=== PATIENT | male | born 1945 | race Caucasian/White ===

== ENCOUNTER 2018-12-04 22:03 | Emergency (ER) | payer OTHER ==
[~2018-12-04] VITALS: Ht 195.6 cm; Wt 129.3 kg
[~2018-12-04 22:03] MED LIST: ALLOPURINOL 30300 M1 PO; ALTACE5 M1 PO; ASPIRIN325; CELEXA 20 MG TA20 M1 PO; COUMADIN 5 MG TA5 M1 PO; MICARDIS40 MG PO; NIASPAN 500 MG500 M1 PO; SLOW-MAG64 MG PO; VITAMIN D400 UNI1 PO; VYTORIN 10-401 EACH PO
[2018-12-04 23:57] LABS: ABSOLUTE NEUTROPHILS 10.6 thou/uL (1.4-8.2); BASOPHILS 0.5 % (0.0-2.0); HEMATOCRIT 41.2 % (42.0-52.0); LYMPHOCYTES 8.9 % (24.0-44.0); MCH 32.4 pg (26.0-34.0); MCHC 33.9 g/dL (28.0-37.0); MCV 95.7 fL (80.0-100.0); MONOCYTES 7.5 % (1.0-8.0); PLATELET COUNT 230 thou/uL (150-400); POLYS 83.1 % (36.0-66.0); RBC 4.31 mil/uL (4.50-6.00); RDW 13.7 % (10.5-14.5); WBC 12.7 thou/uL (4.0-11.0)
[2018-12-05 00:06] LABS: CALCIUM 9.2 mg/dL (8.5-10.1); CREATININE 1.3 mg/dL (0.7-1.3); POTASSIUM 3.9 mmol/L (3.5-5.1)
[2018-12-05 01:59] LABS: APTT 41.9 Seconds (24.5-32.8); PROTIME 58.8 Seconds (9.3-11.4)
[2018-12-05 02:05] LABS: INR 5.7
[2018-12-05] MEDS ORDERED: SIMVASTATIN40 MG PO (02:10)
[2018-12-05] MEDS ORDERED: ALTACE10 MG PO (02:10)
[2018-12-05 02:31] VITALS: BP 149/89
== END 2018-12-05 02:31 | disposition home or self-care (01) ==
LOC: ER 22:03
PROVIDERS: Emergency Medicine
DX: S60.222A Contusion of left hand, initial encounter (principal); R79.1 Abnormal coagulation profile; E78.00 Pure hypercholesterolemia, unspecified; G47.30 Sleep apnea, unspecified; Z86.718 Personal history of other venous thrombosis and embolism; Z87.01 Personal history of pneumonia (recurrent); W22.8XXA Striking against or struck by other objects, initial encounter; Y93.89 Activity, other specified; Y92.89 Other specified places as the place of occurrence of the external cause; Y99.8 Other external cause status

== ENCOUNTER → 2018-12-07 | Outpatient (CLI) | payer OTHER ==
[~2018-12-07] MED LIST changes: +ALTACE10 MG PO; +SIMVASTATIN40 MG PO
== END ==
LOC: ULTRA 07:59
DX: N28.1 Cyst of kidney, acquired (principal)

== ENCOUNTER → 2019-04-17 | Outpatient (CLI) | payer OTHER ==
--- NOTE | 2019-04-17 15:44 | 2DMMODE ---
[facility] [place] [address] 2 D/M-MODE ECHOCARDIOGRAM Name: YURICRISTIANE J Room #: REG [facility]#: [id number] Admission: 04/17/19 Attend Phys: Samm Tim MD Discharge: Date of : 45 Report #: [id number] THIS REPORT FOR: //name// APPROVED REPORT Study performed: 04/17/2019 13:35:30 EXAM: Comprehensive 2D, Doppler, and color-flow Echocardiogram Patient Location: Echo lab Status: routine BSA: 2.60 HR: 67 bpm BP: 159/97 mmHg Rhythm: NSR Other Information Study Quality: Adequate Indications Dyspnea on exertion 2D Dimensions RVDd: 45.91 mm IVSd: 15.21 (7-11mm) LVOT Diam: 26.93 (18-24mm) LVDd: 48.85 mm PWd: 14.48 (7-11mm) Ascending Ao: 41.19 (22-36mm) LVDs: 34.13 (25-40mm) Aortic Root: 41.56 mm IVC: 26.00 mm Volumes Left Atrial Volume (Systole) Single Plane 4CH: 73.74 mL Single Plane 2CH: 94.52 mL LA ESV Index: 33.00 mL/m2 Aortic Valve AoV Peak Darnell.: 1.04 m/s AO Peak Gr.: 4.36 mmHg LVOT Max P.50 mmHg LVOT Max V: 0.79 m/s LALA Vmax: 4.31 cm2 Mitral Valve E/A Ratio: 0.8 MV Decel. Time: 301.04 ms MV E Max Darnell.: 0.43 m/s [facility] [address] [place] [address] 2 D/M-MODE ECHOCARDIOGRAM Name: CRISTIANE WELCH Sid Room #: REG [facility]#: [id number] Admission: 04/17/19 Attend Phys: Samm Tim MD Discharge: Date of : 45 Report #: [id number] MV A Darnell.: 0.55 m/s MV PHT: 87.30 ms IVRT: 156.86 ms Pulmonary Valve PV Peak Darnell.: 1.21 m/s PV Peak Gr.: 5.90 mmHg Pulmonary Vein P Vein S: 0.38 m/s P Vein A: 0.21 m/s P Vein D: 0.42 m/s P Vein A Dur.: 110.7 msec P Vein S/D Ratio: 0.90 Tricuspid Valve RAP Estimate: 10.00 mmHg Left Ventricle The left ventricle is normal size. Regional wall motion is not well visualized but grossly normal. Mild to moderate concentric left ventricular hypertrophy. The left ventricular systolic function is normal. The left ventricular ejection fraction is within the normal range. LVEF is 60-65%. Mild diastolic dysfunction Right Ventricle The right ventricle is normal size. The right ventricular systolic function is normal. Atria Left atrium is at the upper limits of normal. Right atrium is mildly dilated. Aortic Valve The aortic valve is mildly calcified, trileaflet Trace to mild aortic regurgitation. There is no aortic valvular stenosis. Mitral Valve The mitral valve is normal in structure. Trace to mild mitral regurgitation. No evidence of mitral valve stenosis. Tricuspid Valve The tricuspid valve is normal in structure. There is no tricuspid valve regurgitation noted. Unable to assess PA pressure. Pulmonic Valve The pulmonary valve is normal in structure. Trace pulmonic regurgitation. [facility] [place] [address] 2 D/M-MODE ECHOCARDIOGRAM Name: CRISTIANE WELCH Room #: REG [facility]#: [id number] Admission: 04/17/19 Attend Phys: Samm Tim MD Discharge: Date of : 45 Report #: [id number] Great Vessels Aortic root is mildly dilated at 4.2 cm. The ascending aorta is mildly dilated (4.1 cm). IVC is dilated and collapses >50% with inspiration. Pericardium There is no pericardial effusion. <Conclusion> The left ventricular systolic function is normal. Regional wall motion is not well visualized but grossly normal. LVEF is 60-65%. Mild diastolic dysfunction The aortic valve is mildly calcified, trileaflet. Trace to mild aortic regurgitation. The mitral valve is normal in structure. Trace to mild mitral regurgitation. Unable to assess pulmonary artery pressure. The ascending aorta is mildly dilated (4.1 cm). There is no pericardial effusion. <ELECTRONICALLY SIGNED> By: Jose Manuel Velasco MD, FACC 04/17/19 1543 1543 1543 Jose Manuel Velasco MD, FACC /INF
== END ==
LOC: NUC 11:45
DX: I08.0 Rheumatic disorders of both mitral and aortic valves (principal)

== ENCOUNTER → 2020-01-01 | Outpatient (CLI) | payer OTHER | LOC: ULTRA 10:18 | PROVIDERS: ATTEND Internal Medicine | DX: K76.0 Fatty (change of) liver, not elsewhere classified (principal); N28.1 Cyst of kidney, acquired ==

== ENCOUNTER → 2020-03-27 | Outpatient (CLI) | payer OTHER | LOC: RAD 11:44 | PROVIDERS: ATTEND Internal Medicine | DX: M47.816 Spondylosis without myelopathy or radiculopathy, lumbar region (principal); M48.07 Spinal stenosis, lumbosacral region ==

== ENCOUNTER 2020-04-17 08:05 | Emergency (ER) | payer OTHER ==
[~2020-04-17] VITALS: Ht 195.6 cm; Wt 129.3 kg
[~2020-04-17 08:05] MED LIST changes: -CELEXA 20 MG TA20 MG PO; -COQ-1030 MG PO; -FISH OIL 1,0001 EAC9 PO; -MAGNESIUM250 M1 PO; -NASCOBAL1 EACH PO; -PROBIOTIC & AC1 EACH PO
[2020-04-17] MEDS ORDERED: CELEXA 20 MG TA20 MG PO (08:21)
[2020-04-17] MEDS ORDERED: FISH OIL 1,0001 EAC9 PO (08:22)
[2020-04-17] MEDS ORDERED: COQ-1030 MG PO (08:22)
[2020-04-17] MEDS ORDERED: MAGNESIUM250 M1 PO (08:22)
[2020-04-17] MEDS ORDERED: PROBIOTIC & AC1 EACH PO (08:23)
[2020-04-17] MEDS ORDERED: NASCOBAL1 EACH PO (08:23)
[2020-04-17 08:27] LABS: HEMATOCRIT 44.9 % (42.0-52.0); HEMOGLOBIN 15.4 gm/dL (14.0-18.0); MCH 33.9 pg (26.0-34.0); MCHC 34.3 g/dL (28.0-37.0); RBC 4.54 mil/uL (4.50-6.00); RDW 14.3 % (10.5-14.5); WBC 4.2 thou/uL (4.0-11.0)
[2020-04-17 08:37] LABS: ANION GAP 10 mmol/L (7-16); BUN 16 mg/dL (7-18); CALCIUM 9.4 mg/dL (8.5-10.1); CHLORIDE 104 mmol/L (98-107); CO2 26 mmol/L (21-32); CREATININE 1.3 mg/dL (0.7-1.3); GLUCOSE 104 mg/dL (74-106); POTASSIUM 3.9 mmol/L (3.5-5.1); SODIUM 140 mmol/L (136-145)
[2020-04-17 08:46] LABS: TROPONIN-I <0.06 ng/mL (<0.06)
[2020-04-17 08:57] LABS: APTT 37.7 Seconds (24.5-32.8); PROTIME 20.2 Seconds (9.3-11.4)
[2020-04-17 09:24] VITALS: BP 123/74
--- NOTE | 2020-04-17 09:24 | EKG ---
[facility] [place] [place] [address] ELECTROCARDIOGRAM REPORT Name: WELCHCRISTIANE Room #: REG [facility].#: [id number] Admission: 04/17/20 Attend Phys: Discharge: Date of : 45 Report #: [id number] THIS REPORT FOR: cc: Price Harris MD, Christopher B. MD Santiago, Patrick MD [facility] ~ THIS REPORT FOR: //name// [facility] ED Test Date: 2020-04-17 Test Time: 08:11:05 Pat Name: CRISTIANE WELCH Department: Room: Gender: Record Center Specialist: KASEY DELGADILLO : 1945 Requested By: Sony Arrieta Order Number: [id number] MD: Uri Avila Measurements Intervals [place] Rate: 80 P: -54 UT: 210 QRS: -9 QRSD: 104 T: 18 QT: 395 QTc: 456 Interpretive Statements NSR Baseline wander in lead(s) V3 Compared to ECG 12/20/2009 17:07:06 No significant changes Electronically Signed On 04-17-2020 9:23:55 CDT by Uri Avila [email or web address] <ELECTRONICALLY SIGNED> By: Uri Avila MD, FACC 04/17/20 0923 0 0 Uri Avila MD, [facility] /EPI
== END 2020-04-17 09:24 | disposition home or self-care (01) ==
LOC: ER 08:05
PROVIDERS: Emergency Medicine
DX: R07.89 Other chest pain (principal); E78.5 Hyperlipidemia, unspecified; F17.210 Nicotine dependence, cigarettes, uncomplicated; Z79.899 Other long term (current) drug therapy; Z79.82 Long term (current) use of aspirin; Z79.01 Long term (current) use of anticoagulants

== ENCOUNTER → 2020-04-17 | Outpatient (CLI) | payer OTHER ==
[~2020-04-17] MED LIST changes: +CELEXA 20 MG TA20 MG PO; +COQ-1030 MG PO; +FISH OIL 1,0001 EAC9 PO; +MAGNESIUM250 M1 PO; +NASCOBAL1 EACH PO; +PROBIOTIC & AC1 EACH PO
== END ==
LOC: MRI 15:25
PROVIDERS: ATTEND Internal Medicine
DX: M51.37 Other intervertebral disc degeneration, lumbosacral region (principal); M48.07 Spinal stenosis, lumbosacral region; M25.78 Osteophyte, vertebrae; M47.816 Spondylosis without myelopathy or radiculopathy, lumbar region

== ENCOUNTER → 2020-04-19 | Outpatient (CLI) | payer OTHER ==
[~2020-04-19] MED LIST changes: +CELEXA 20 MG TA20 MG PO; +COQ-1030 MG PO; +FISH OIL 1,0001 EAC9 PO; +MAGNESIUM250 M1 PO; +NASCOBAL1 EACH PO; +PROBIOTIC & AC1 EACH PO
== END ==
LOC: SJCVC 10:22 → SJCVCIMAG 10:22
PROVIDERS: ATTEND Internal Medicine Cardiovascular Disease
DX: I65.23 Occlusion and stenosis of bilateral carotid arteries (principal); I08.2 Rheumatic disorders of both aortic and tricuspid valves; I11.9 Hypertensive heart disease without heart failure; D68.59 Other primary thrombophilia; E78.00 Pure hypercholesterolemia, unspecified; I72.9 Aneurysm of unspecified site; F17.200 Nicotine dependence, unspecified, uncomplicated; Z79.899 Other long term (current) drug therapy; Z86.718 Personal history of other venous thrombosis and embolism

== ENCOUNTER → 2020-04-24 | Outpatient (CLI) | payer OTHER | LOC: CAT 11:11 | PROVIDERS: ATTEND Internal Medicine | DX: N28.1 Cyst of kidney, acquired (principal); N20.0 Calculus of kidney ==

== ENCOUNTER → 2020-04-24 | Outpatient (CLI) | payer OTHER ==
[~2020-04-24] MED LIST changes: +XARELTO20 MG PO
== END ==
LOC: SJCVCIMAG 07:30
PROVIDERS: ATTEND Internal Medicine Cardiovascular Disease
DX: I45.10 Unspecified right bundle-branch block (principal); R00.0 Tachycardia, unspecified; R93.1 Abnormal findings on diagnostic imaging of heart and coronary circulation; F17.290 Nicotine dependence, other tobacco product, uncomplicated; Z79.01 Long term (current) use of anticoagulants; Z79.82 Long term (current) use of aspirin; Z79.899 Other long term (current) drug therapy

== ENCOUNTER → 2020-05-02 | Outpatient (CLI) | payer OTHER ==
[~2020-05-02] VITALS: Ht 195.6 cm; Wt 129.5 kg
[2020-05-02 07:15] VITALS: BP 135/85
--- NOTE | 2020-05-03 17:39 | CATHLAB ---
[facility] [place] [place] [address] INVASIVE PROCEDURE REPORT Name: CRISTIANE WELCH Room #: REG [facility].#: [id number] Admission: 05/02/20 Attend Phys: Derian Abbott MD, Discharge: Date of : 45 Report #: [id number] THIS REPORT FOR: cc: Price Harris MD, Christopher B. MD Mancuso, Gerald M. MD [facility] ~ APPROVED REPORT Study performed: 05/02/2020 07:44:42 Patient Details Patient Status: Out-Patient Room #: The patient is a 74 year-old male Event Personnel Derian Abbott Sliver Lap Tender, Kalani Orr RN RN, Jennifer Licea RTR, YOCASTA Scrub, Teja Dukes RTR Scrub, Roxy Rosales Monitor Procedures Performed Art Access - R femoral artery* Left Heart Cath w/or w/o Coronaries [id number] [facility] Aortogram Abdominal Peripheral Angio 487260 65534 Initial Mod Sed Same Phys/QHP Gr5y [id number] 65798 Mod Sed Same Phys/QHP Ea 412276 Hemostasis w/ Mynx Indication Chest pain Procedure Narrative The Right Groin^ was infiltrated with 1% Lidocaine subcutaneous anesthesia. A PINNACLE 6FR Sheath #[id number] sheath was inserted into the RFA 6F^. Coronary angiography was performed using coronary diagnostic catheters. The right coronary system was accessed and visualized with a JR4 catheter. The left coronary system was accessed and visualized with a JL5 catheter. The left ventricle was accessed and visualized with a STR PIG catheter. Left ventriculogram was performed in 30 degree projection. The patient tolerated the procedure well and there were no complications associated with the procedure. There was no hematoma. USED A JL5 FOR left cor. Intraoperative Conscious Sedation Sedation start time: 851 Case end Time: [address] [facility] [address] [place] [address] INVASIVE PROCEDURE REPORT Name: CRISTIANE WELCH Room #: [facility]#: [id number] Admission: 05/02/20 Attend Phys: Derian UmañaJoe Milena, Discharge: Date of : 45 Report #: [id number] Fentanyl --100 mcg Versed 2 mg Fluoro Time: 2.20 minutes Dose: DAP 54517.00 cGycm2 1238 mGy Contrast Type and Amount: Visipaque 95 ml Hemodynamics The aortic pressure is 138/81 mmHg with a mean of 113 mmHg. The left ventricular pressure is 128/7 mmHg with a mean of mmHg. The left ventricular end diastolic pressure is 16 mmHg. Conclusion #1. Normal left ventricular size and systolic function EF 60% #2 left main large free of disease giving rise to LAD and circumflex. #3 left main large free of disease giving rise to LAD and circumflex #4 LAD is a smaller caliber vessel with a large diagonal system with mild irregularity. #5 circumflex OM is a large but nondominant vessel with mild irregularity and proximal calcification. #6 large dominant right coronary artery proximal calcification no occlusive disease giving rise to a PDA MADDY well preserved. #7 abdominal aortogram is mild aortic ectasia single renal arteries bilaterally are widely patent no aneurysm noted. Recommendations and plan: Continue aggressive risk factor modification. No indication for coronary intervention. Follow-up will be arranged. <ELECTRONICALLY SIGNED> By: Derian Abbott MD, FACC 05/03/20 1739 [id number] 1739 Derian Abbott MD, FACC /INF
== END | disposition home or self-care (01) ==
LOC: CATH 06:32
PROVIDERS: ATTEND Internal Medicine Cardiovascular Disease
DX: R07.9 Chest pain, unspecified (principal); I25.10 Atherosclerotic heart disease of native coronary artery without angina pectoris; I77.811 Abdominal aortic ectasia; I10 Essential (primary) hypertension; E78.00 Pure hypercholesterolemia, unspecified; G47.30 Sleep apnea, unspecified; E66.09 Other obesity due to excess calories; K21.9 Gastro-esophageal reflux disease without esophagitis; F17.210 Nicotine dependence, cigarettes, uncomplicated; Z98.890 Other specified postprocedural states; Z79.899 Other long term (current) drug therapy; Z90.49 Acquired absence of other specified parts of digestive tract; Z86.718 Personal history of other venous thrombosis and embolism; Z79.01 Long term (current) use of anticoagulants

== ENCOUNTER → 2020-12-18 | Outpatient (CLI) | payer OTHER | LOC: SJCVCIMAG 09:33 | PROVIDERS: ATTEND Internal Medicine Cardiovascular Disease | DX: I87.309 Chronic venous hypertension (idiopathic) without complications of unspecified lower extremity (principal); M79.89 Other specified soft tissue disorders; I71.2 Thoracic aortic aneurysm, without rupture; I10 Essential (primary) hypertension; E78.5 Hyperlipidemia, unspecified; F17.209 Nicotine dependence, unspecified, with unspecified nicotine-induced disorders; Z72.89 Other problems related to lifestyle; Z79.899 Other long term (current) drug therapy; Z79.82 Long term (current) use of aspirin ==

== ENCOUNTER → 2021-04-04 | Outpatient (CLI) | payer OTHER | LOC: MRI 09:40 | PROVIDERS: ATTEND Specialist | DX: L97.512 Non-pressure chronic ulcer of other part of right foot with fat layer exposed (principal); L08.9 Local infection of the skin and subcutaneous tissue, unspecified; M62.571 Muscle wasting and atrophy, not elsewhere classified, right ankle and foot ==

== ENCOUNTER → 2021-05-01 | Outpatient (CLI) | payer OTHER | LOC: SJCVC 09:35 | PROVIDERS: ATTEND Internal Medicine Cardiovascular Disease | DX: R94.31 Abnormal electrocardiogram [ECG] [EKG] (principal); I25.10 Atherosclerotic heart disease of native coronary artery without angina pectoris; I10 Essential (primary) hypertension; E78.00 Pure hypercholesterolemia, unspecified; E78.5 Hyperlipidemia, unspecified; Z86.718 Personal history of other venous thrombosis and embolism; Z79.82 Long term (current) use of aspirin; Z79.899 Other long term (current) drug therapy; F17.200 Nicotine dependence, unspecified, uncomplicated; Z72.89 Other problems related to lifestyle ==